=== PATIENT | female | born 1995 | race Caucasian/White ===

== ENCOUNTER 2018-07-14 23:36 | Emergency (ER) | payer OTHER ==
[2018-07-14 23:40] VITALS: BP 135/107
--- NOTE | 2018-07-15 00:14 | EDPHY ---
H & P Time Seen by Provider: 07/15/18 00:07 HPI/ROS: CHIEF COMPLAINT: Discoloration to toes "black strings coming out from underneath my toe nail" HISTORY OF PRESENT ILLNESS: 23-year-old female with possible history of Raynaud 's syndrome, in the ER concerned about discoloration to her feet and "black strings" that she saw coming out from underneath nails. This occurred while she was given herself a pedicure. She denies pain. She is able to bear weight. Denies trauma. PHYSICAL EXAM (Prior to examination, patient consented to physical exam, hands were washed and my usual and customary physical exam procedures followed) 1) GENERAL: Well-developed, well-nourished, alert and oriented. Appears to be in no acute distress. 2) HEAD: Normocephalic 3) HEENT: sclera anicteric 4) LUNGS: Breathing comfortably. 5) SKIN: On the patient's bilateral feet she has brisk DP and PT pulses which are symmetrical, capillary refill less than 2 sec at all digits, warm temperature, normal coloration. There are no signs of infection, no cellulitic changes, no crepitus, no tenderness, soft compartments throughout. On examination of the toes, nails and subungual regions I do not identify any foreign objects, no "black strings" Smoking Status: Never smoked Constitutional: Initial Vital Signs Temperature (C) 36.8 C 07/14/18 23:37 Heart Rate 86 07/14/18 23:37 Respiratory Rate 18 07/14/18 23:37 Blood Pressure 135/107 H 07/14/18 23:37 O2 Sat (%) 99 07/14/18 23:37 O2 Delivery Mode Room Air Allergies/Adverse Reactions: No Known Allergies Allergy (Verified 07/14/18 23:39) Home Medications: Medication Instructions Recorded Adderall 10 MG (*) 03/03/18 Omeprazole 03/03/18 Propranolol Sr 03/03/18 MDM/Departure - MDM ED Course/Re-evaluation: On examination the patient's feet she has equal pulses bilaterally, DP PT pulses are present and brisk with capillary refill less than 2 seconds of all digits. She has no evidence of vascular occlusive disorder. She is insistent that there are "black strings" coming from her subungual region. She points at discrete areas and I am unable to visualize any black strings or foreign bodies. At this time I think the patient can be discharged. She does note a history that she may have been told she has Raynaud syndrome in the past. Recommended x-ray avoiding extremes of temperature, recommend socks and definitely if she develops discoloration or has further concerns to seek immediate medical attention. She feels comfortable being discharged. Patient feels comfortable being discharged. All questions and concerns addressed by myself. Patient given my usual and customary discharge precautions and instructions regarding their clinical impression. Care of patient under supervision of secondary supervising physician Dr Mcclellan . - Depart Disposition: Home, Routine, Self-Care Clinical Impression: Discoloration of skin of toe Condition: Good Instructions: Raynaud Disease (ED) Additional Instructions: I recommend you wear socks and avoid extremes of temperature change. Referrals: [facility],. [Clinic] - 1-2 days without fail
== END 2018-07-15 00:20 | disposition home or self-care (01) ==
DX: L81.9 Disorder of pigmentation, unspecified (principal)